=== PATIENT | female | born 1995 | race Caucasian/White ===

== ENCOUNTER → 2019-04-29 16:55 | Observation (INO) ==
[2019-04-29 17:53] LABS: Candida DNA Not Detected (Not Detect); Gardnerella DNA Not Detected (Not Detect); Trichomonas DNA Not Detected (Not Detect)
== END | disposition home or self-care (01) ==
LOC: 1NENULAB
PROVIDERS: ADMIT Advanced Practice Midwife; ATTEND Advanced Practice Midwife

== ENCOUNTER → 2019-08-04 01:24 | Observation (INO) | END | disposition home or self-care (01) | LOC: 1NENULAB | PROVIDERS: ADMIT Student in an Organized Health Care Education/Training Program; ATTEND Student in an Organized Health Care Education/Training Program ==

== ENCOUNTER 2019-08-14 05:58 | Inpatient (IN) ==
[2019-08-14] MEDS ORDERED: Ondansetron 4 MG/2 ML VIAL IVP PRN ×2 (06:00→15:57)
[2019-08-14] MEDS ORDERED: Famotidine 20 MG/2 ML VIAL IVP PRN (06:00)
[2019-08-14] MEDS ORDERED: D5% in Lactated Ringers 1,000 ML IVC SCH (06:00)
[2019-08-14] MEDS ORDERED: Metoclopramide 10 MG/2 ML VIAL IVP PRN (06:00)
[2019-08-14] MEDS ORDERED: *HR* FentaNYL (PF) 100 MCG/2 ML VIAL IVP PRN (06:00)
[2019-08-14] MEDS ORDERED: Naloxone 0.4 MG/ML INJ IVP PRN (06:00)
[2019-08-14] MEDS ORDERED: Lidocaine 1% 20 ML MDV INFILT PRN (06:00)
[2019-08-14] MEDS ORDERED: Ringers Solution, Lactated 1,000 ML ONE ×2 (06:21→12:37)
[2019-08-14] MEDS ORDERED: Oxytocin 20 units/ LR 1000 mL 20 UNIT/1,000 ML BAG IVC SCH ×2 (06:30→15:57)
[2019-08-14 07:05] LABS: Basophils % 0.2 %; Eosinophils # 0.1 K/mcL (0.0-0.6); Eosinophils % 0.7 %; Hematocrit 40.1 % (35.3-44.9); Hemoglobin 13.3 g/dL (11.5-15.4); Immature Granulocytes % 0.5 % (0-4); Immature Platelets 16.1 % (1.1-6.1); Lymphocytes # 1.6 K/mcL (0.6-4.6); Lymphocytes % 19.4 %; Mean Corpuscular HGB Conc 33.2 g/dL (31.6-35.5); Mean Corpuscular Hemoglobin 29.8 pg (28.0-33.3); Mean Corpuscular Volume 89.9 fL (83.0-100.0); Mean Platelet Volume 13.2 fL (9.4-12.4); Monocytes # 0.8 K/mcL (0.0-1.3); Monocytes % 9.7 %; Neutrophils # 5.6 K/mcL (1.6-8.9); Platelet Count 129 K/mcL (140-400); Red Blood Count 4.46 M/mcL (3.82-4.97); Segmented Neutrophils % 69.5 %
[2019-08-14 08:42] LABS: Amphetamine Screen,Urine Negative ng/mL (Cutoff=1000); Barbiturate Screen,Urine Negative ng/mL (Cutoff=200); Benzodiazepines Screen,Urine Negative ng/mL (Cutoff=200); Cannabinoid Screen,Urine Negative ng/mL (Cutoff = 50); Cocaine Screen,Urine Negative ng/mL (Cutoff= 300); Opiate Screen,Urine Negative ng/mL (Cutoff=300); Phencyclidine Screen,Urine Negative ng/mL (Cutoff=25)
[2019-08-14] MEDS ORDERED: Methylergonovine 0.2 MG/ML AMPUL IM ONE (09:49)
[2019-08-14] MEDS ORDERED: EPHEDrine 50 MG/ML VIAL IVP PRN (12:10)
[2019-08-14] MEDS ORDERED: Epidural Premix (fent/bupiv) 110 ML EP SCH (12:15)
[2019-08-14] MEDS ORDERED: *HR* Propofol 200 MG/20 ML VIAL IVP ONE (12:43)
[2019-08-14] MEDS ORDERED: *HR* Rocuronium Bromide 50 MG/5 ML VIAL ONE (12:45)
[2019-08-14] MEDS ORDERED: Lidocaine -MPF 2% 5 ML VIAL ONE (12:45)
[2019-08-14] MEDS ORDERED: *HR* Succinylcholine 200 MG/10 ML VIAL IVP ONE (12:45)
[2019-08-14] MEDS ORDERED: Pregabalin 75 MG CAPSULE PO ONE (12:55)
[2019-08-14] MEDS ORDERED: *HR* OxyCODONE Immed Rel 5 MG TABLET PO PRN (12:55)
[2019-08-14] MEDS ORDERED: *HR* HYDROmorphone 2 MG TABLET PO PRN (12:55)
[2019-08-14] MEDS ORDERED: *HR* Promethazine 25 MG/ML VIAL IVP PRN (12:55)
[2019-08-14] MEDS ORDERED: *HR* Labetalol 20 MG/4 ML SYRINGE IVP PRN (12:55)
[2019-08-14] MEDS ORDERED: *HR* HYDROmorphone (PF) 1 MG/ML SYRINGE IVP PRN (12:55)
[2019-08-14] MEDS ORDERED: Acetaminophen IV 1,000 MG/100 ML INFUS..BTL IVPB ONE (12:55)
[2019-08-14] MEDS ORDERED: Dexamethasone 4 MG/ML VIAL ONE (13:03)
[2019-08-14] MEDS ORDERED: Ondansetron 4 MG/2 ML VIAL ONE (13:03)
[2019-08-14] MEDS ORDERED: Acetaminophen IV 1,000 MG/100 ML INFUS..BTL ONE (13:04)
[2019-08-14] MEDS ORDERED: Ketorolac 30 MG/ML VIAL ONE (13:05)
[2019-08-14] MEDS ORDERED: *HR* HYDROMORPHONE 2 MG/ML VIAL ONE (13:14)
[2019-08-14] MEDS ORDERED: *HR* Ropivacaine/PF 0.5% 20 ML VIAL ONE (13:20)
[2019-08-14] MEDS ORDERED: *HR* Oxytocin 10 UNIT/ML VIAL IM ONE (13:27)
[2019-08-14] MEDS ORDERED: *HR* HYDROmorphone 20 MG/20 ML PCA IVC PRN (15:17)
[2019-08-14] MEDS: metroNIDAZOLE 500 MG TABLET PO SCH ×2 (16:54→20:41)
[2019-08-14] MEDS: cephALEXin 500 MG CAPSULE PO SCH ×2 (16:54→20:40)
[2019-08-14] MEDS: Ibuprofen 600 MG TABLET PO SCH (20:40)
[2019-08-14] MEDS: Acetaminophen 325 MG TABLET PO SCH (20:41)
[2019-08-14] MEDS: *HR* OxyCODONE Immed Rel 5 MG TABLET PO PRN (23:48)
[2019-08-15] MEDS: Acetaminophen 325 MG TABLET PO SCH ×4 (02:34→23:55)
[2019-08-15] MEDS: Ibuprofen 600 MG TABLET PO SCH ×5 (02:34→23:55)
[2019-08-15 07:02] LABS: Basophils % 0.1 %
[2019-08-15 07:04] LABS: Eosinophils % 0.1 %; Hemoglobin 10.2 g/dL (11.5-15.4); Immature Granulocytes % 0.5 % (0-4); Immature Platelets 14.9 % (1.1-6.1); Lymphocytes # 1.5 K/mcL (0.6-4.6); Lymphocytes % 10.1 %; Mean Corpuscular HGB Conc 32.9 g/dL (31.6-35.5); Mean Corpuscular Hemoglobin 29.9 pg (28.0-33.3); Mean Corpuscular Volume 90.9 fL (83.0-100.0); Mean Platelet Volume 12.3 fL (9.4-12.4); Monocytes # 1.3 K/mcL (0.0-1.3); Monocytes % 8.9 %; Platelet Count 120 K/mcL (140-400); Red Blood Count 3.41 M/mcL (3.82-4.97); Red Cell Distribution Width 14.4 % (11.5-14.5); Segmented Neutrophils % 80.3 %; White Blood Count 14.9 K/mcL (4.3-11.1)
[2019-08-15] MEDS: *HR* OxyCODONE Immed Rel 5 MG TABLET PO PRN ×3 (08:33→21:02)
[2019-08-15] MEDS: Simethicone 80 MG TAB.CHEW PO PRN (08:33)
[2019-08-15] MEDS: metroNIDAZOLE 500 MG TABLET PO SCH ×3 (08:33→20:14)
[2019-08-15] MEDS: Prenatal Vit/FA 1 EACH TABLET PO SCH (08:34)
[2019-08-15] MEDS: cephALEXin 500 MG CAPSULE PO SCH ×3 (08:34→20:15)
[2019-08-16] MEDS: *HR* OxyCODONE Immed Rel 5 MG TABLET PO PRN (02:55)
[2019-08-16] MEDS: Ibuprofen 600 MG TABLET PO SCH (06:22)
[2019-08-16] MEDS: Acetaminophen 325 MG TABLET PO SCH (06:22)
[2019-08-16 07:51] VITALS: BP 117/77
[2019-08-16] MEDS: Prenatal Vit/FA 1 EACH TABLET PO SCH (08:07)
[2019-08-16] MEDS: Simethicone 80 MG TAB.CHEW PO PRN (08:08)
[2019-08-16] MEDS: metroNIDAZOLE 500 MG TABLET PO SCH (08:08)
[2019-08-16] MEDS: cephALEXin 500 MG CAPSULE PO SCH (08:08)
== END 2019-08-16 10:10 | disposition home or self-care (01) | DRG 788 ==
LOC: 1NENULAB 05:58 → 1NENUOBS 15:53
PROVIDERS: ADMIT Obstetrics & Gynecology; ATTEND Obstetrics & Gynecology